=== PATIENT | male | born 1990 | race Caucasian/White ===

== ENCOUNTER 2021-03-06 08:28 | Emergency (ER) | payer OTHER ==
[~2021-03-06 08:28] MED LIST: BACTRIM DS1 TAB OR; CIPROFLOXACN500 MG PO; CLEOCIN300 MG PO; CLINDAMYCIN300 M1 PO; ERYTHROMYCIN O3.5 GM OU; FIORINA1 PO; IBUPROFEN600 MG PO; KEFLEX500 M1 PO; LORTAB 1010 MG PO; NAPROSYN500 MG OR; NO MEDS; OFLOXACIN0.3 % AS; ONDANSETRON4 MG PO; PERCOCET 5/325M1 TAB OR; PHENERGAN25 MG/TAB PO; SILVADENE1 % EX; TORADOL PO; TYLENOL # 31 TA1 PO; TYLENOL # 31 TAB PO; ULTRAM50 M1 PO; ULTRAM50 MG OR; VOLTAREN75 MG PO; WELLBUTRIN XL300 MG PO; ZOFRAN ODT8 MG PO
[2021-03-06 09:42] VITALS: BP 128/68
== END 2021-03-06 09:44 | disposition home or self-care (01) | DRG 103 ==
LOC: ED 08:28
DX: R51.9 Headache, unspecified (principal); F32.9 Major depressive disorder, single episode, unspecified; F17.200 Nicotine dependence, unspecified, uncomplicated; Z20.822 Contact with and (suspected) exposure to COVID-19

== ENCOUNTER 2022-11-19 13:18 | Emergency (ER) | payer OTHER ==
[~2022-11-19] VITALS: Ht 185.4 cm; Wt 81.6 kg
[2022-11-19 13:37] VITALS: BP 126/88
[2022-11-19 13:45] VITALS: BP 131/88
[2022-11-19 14:00] VITALS: BP 114/79
[2022-11-19] MEDS ORDERED: OMNICEF300 M1 PO (14:10)
[2022-11-19 14:15] VITALS: BP 123/80
[2022-11-19 14:30] VITALS: BP 122/80
[2022-11-19 14:48] VITALS: BP 122/80
== END 2022-11-19 14:42 | disposition home or self-care (01) | DRG 603 ==
LOC: ED 13:18
DX: L03.311 Cellulitis of abdominal wall (principal); S30.811A Abrasion of abdominal wall, initial encounter; F32.A Depression, unspecified; F17.290 Nicotine dependence, other tobacco product, uncomplicated; W26.0XXA Contact with knife, initial encounter

== ENCOUNTER 2024-02-28 08:25 | Emergency (ER) | payer SELFPAY ==
[~2024-02-28] VITALS: Ht 185.4 cm; Wt 81.8 kg
[~2024-02-28 08:25] MED LIST changes: +OMNICEF300 M1 PO
[2024-02-28 08:33] VITALS: BP 123/100
[2024-02-28 08:37] VITALS: BP 139/96
[2024-02-28] MEDS ORDERED: FLOXIN OTIC0.3 % AS (08:43)
[2024-02-28 08:45] VITALS: BP 130/94
[2024-02-28 08:49] VITALS: BP 130/94
== END 2024-02-28 08:55 | disposition home or self-care (01) | DRG 156 ==
LOC: ED 08:25
DX: H60.92 Unspecified otitis externa, left ear (principal); F32.A Depression, unspecified; F17.290 Nicotine dependence, other tobacco product, uncomplicated

== ENCOUNTER 2024-04-10 21:37 | Emergency (ER) | payer OTHER ==
[~2024-04-10] VITALS: Ht 185.4 cm; Wt 75.0 kg
[~2024-04-10 21:37] MED LIST changes: +FLOXIN OTIC0.3 % AS
[2024-04-10 22:59] VITALS: BP 124/77
== END 2024-04-10 23:09 | DRG 923 ==
LOC: ED 21:37
DX: Z04.1 Encounter for examination and observation following transport accident (principal); F17.200 Nicotine dependence, unspecified, uncomplicated; R22.0 Localized swelling, mass and lump, head

== ENCOUNTER 2024-10-23 21:43 | Emergency (ER) | payer SELFPAY ==
[~2024-10-23] VITALS: Ht 185.4 cm; Wt 90.7 kg
[2024-10-23] MEDS ORDERED: SODIUM CHLORIDE 0.9% 1,000 ML IV STA (22:54)
[2024-10-23] MEDS ORDERED: Pantoprazole Sodium 40 MG VIAL (Protonix) IV STA (22:54)
[2024-10-23] MEDS ORDERED: KETOROLAC TROMETHAMINE 30 MG/ML SDV IV ONE (22:55)
[2024-10-23 23:29] LABS: BASO% 0.2 % (0-3); EOS% 1.3 % (0-8); HEMATOCRIT 40.6 % (39.0-50.0); IMMATURE GRANULOCYTES 0.1 % (0.0-5.0); LYMPH% 17.4 % (15-41); MEAN CELL VOLUME 83.9 fL CALC (80.0-100.0); MEAN CORPUSCULAR HGB 28.9 pG CALC (26.0-32.0); MEAN CORPUSCULAR HGB CONC 34.5 g/dL CAL (32.0-36.0); MONO% 8.9 % (2-13); NEUT# 9.66 thou/uL (1.82-7.42); NEUT% 72.1 % (42-76); RED BLOOD COUNT 4.84 mill/uL (4.70-6.10); RED CELL DISTRI WIDTH 11.8 % (11.5-15.5)
[2024-10-23 23:48] LABS: ALBUMIN 4.6 g/dL (3.2-5.0); CREATININE 0.7 mg/dL (0.7-1.3); POTASSIUM 3.5 mmol/l (3.5-5.1)
[2024-10-23 23:50] LABS: BILIRUBIN, TOTAL 0.6 mg/dL (0.2-1.3)
[2024-10-24 00:19] VITALS: BP 106/67
[2024-10-24 00:30] VITALS: BP 98/65
[2024-10-24 02:29] VITALS: BP 98/65
== END 2024-10-24 02:30 | disposition home or self-care (01) | DRG 395 ==
LOC: ED 21:43
PROVIDERS: Family Medicine
DX: K43.9 Ventral hernia without obstruction or gangrene (principal); F17.200 Nicotine dependence, unspecified, uncomplicated
CPT/HCPCS: J2470; Q9967